=== PATIENT | female | born 1990 | race Caucasian/White ===

== ENCOUNTER → 2017-06-05 | Outpatient (CLI) | payer OTHER ==
[~2017-06-05] MED LIST: NITR-5 PO
== END | disposition home or self-care (01) ==
LOC: C.LAB1850 13:41
PROVIDERS: ATTEND Obstetrics & Gynecology
DX: Z34.90 Encounter for supervision of normal pregnancy, unspecified, unspecified trimester (principal); Z3A.00 Weeks of gestation of pregnancy not specified

== ENCOUNTER → 2017-06-11 | Outpatient (CLI) | payer OTHER ==
[2017-06-11 16:33] LABS: BASO % 0.3 %; BASO ABS # 0.02 K/uL (0-0.2); COMPLETE YES; EOS % 1.3 %; HEMATOCRIT 34.1 % (37-47); IG% 0.1 %; LYMPH % 27.7 %; LYMPH ABS # 1.93 K/uL (1.2-3.4); MEAN CORPUSCULAR HEMOGLOBIN 29.9 pg (25-34); MEAN CORPUSCULAR HGB CONC 35.2 g/dl (32-36); MEAN PLATELET VOLUME 10.1 fL (7.4-10.4); NEUT % 65.6 %; PLATELET COUNT 215 K/uL (130-400); RED BLOOD COUNT 4.01 M/uL (4.2-5.4); WHITE BLOOD COUNT 6.98 K/uL (4.8-10.8)
[2017-06-11 18:44] LABS: URINE APPEARANCE TURBID (CLEAR); URINE BILIRUBIN NEG (NEG); URINE COLOR DK YELLOW; URINE EPITHELIAL CELL AUTO >30 /lpf (0-5); URINE NITRITE NEG (NEG); URINE SPECIFIC GRAVITY 1.033 (1.000-1.030); UROBILINOGEN NEG (NEG)
[2017-06-11 18:45] LABS: MANUAL MICROSCOPIC REQUIRED? NO; REVIEW REQ? NO
[2017-06-14 03:19] LABS: CHLAMYDIA TRACH RNA*** NOT DETECTED (NOT DETECTED); GC (NEIS GONORRHOEAE)RNA** NOT DETECTED (NOT DETECTED)
== END | disposition home or self-care (01) ==
LOC: C.LAB1850 14:57
PROVIDERS: ATTEND Obstetrics & Gynecology
DX: O09.211 Supervision of pregnancy with history of pre-term labor, first trimester (principal)

== ENCOUNTER → 2017-06-11 | Outpatient (CLI) | payer OTHER | END | disposition home or self-care (01) | LOC: C.PAPS 08:58 | PROVIDERS: ATTEND Obstetrics & Gynecology | DX: Z12.4 Encounter for screening for malignant neoplasm of cervix (principal) ==

== ENCOUNTER → 2017-10-01 | Outpatient (CLI) | payer OTHER | END | disposition home or self-care (01) | LOC: C.LABSPEC 13:35 | PROVIDERS: ATTEND Obstetrics & Gynecology | DX: Z34.83 Encounter for supervision of other normal pregnancy, third trimester (principal) ==

== ENCOUNTER → 2017-10-04 | Outpatient (CLI) | payer OTHER ==
[2017-10-04 12:34] LABS: HEMATOCRIT 33.9 % (37-47); HEMOGLOBIN 11.4 g/dL (12.0-16.0)
== END | disposition home or self-care (01) ==
LOC: C.LAB1850 10:07
PROVIDERS: ATTEND Obstetrics & Gynecology
DX: Z34.83 Encounter for supervision of other normal pregnancy, third trimester (principal)

== ENCOUNTER → 2017-12-09 | Outpatient (CLI) | payer OTHER | END | disposition home or self-care (01) | LOC: C.LABSPEC 10:28 | PROVIDERS: ATTEND Obstetrics & Gynecology | DX: Z34.83 Encounter for supervision of other normal pregnancy, third trimester (principal) ==

== ENCOUNTER 2017-12-25 02:09 | Inpatient (IN) | payer OTHER ==
[~2017-12-25] VITALS: Ht 157.5 cm; Wt 72.7 kg
[2017-12-25 02:53] VITALS: Ht 157.5 cm; Wt 72.7 kg
[2017-12-25] MEDS ORDERED: EpHEDrine SULFATE INJ 50 MG/ML AMP ONE (02:54)
[2017-12-25] MEDS ORDERED: FENTANYL CITRATE INJ 50 MCG/1 ML 2 ML VIAL ONE (02:54)
[2017-12-25] MEDS ORDERED: BUPIVACAINE 0.25% 30 ML VIAL ONE (02:54)
[2017-12-25] MEDS ORDERED: FENTANYL 2MCG/ML ROPIV 1.25MG/ML 100ML BAG EPI ONE (02:55)
[2017-12-25] MEDS ORDERED: PRENTAB26 PO (03:00)
[2017-12-25] MEDS: LACTATED RINGER'S 1000ML 1,000 ML IV SCH ×2 (03:04→04:01)
[2017-12-25 03:21] LABS: HEMATOCRIT 32.5 % (37-47); HEMOGLOBIN 10.9 g/dL (12.0-16.0); MEAN CELL VOLUME 85.5 fL (80-100); MEAN CORPUSCULAR HEMOGLOBIN 28.7 pg (25-34); MEAN CORPUSCULAR HGB CONC 33.5 g/dl (32-36); MEAN PLATELET VOLUME 10.5 fL (7.4-10.4); PLATELET COUNT 197 K/uL (130-400); RED CELL DISTRIBUTION WIDTH CV 13.4 % (11.5-14.5); RED CELL DISTRIBUTION WIDTH SD 41.7 fL (36.4-46.3); WHITE BLOOD COUNT 13.37 K/uL (4.8-10.8)
[2017-12-25] MEDS ORDERED: NALOXONE HCL INJ 1 MG in SODIUM CHLORIDE 0.9% 1000ML 1,000 ML IV PRN (04:13)
[2017-12-25] MEDS ORDERED: LACTATED RINGER'S 1000ML 500 ML IV PRN (04:13)
[2017-12-25] MEDS ORDERED: NALOXONE HCL INJ 0.4 MG/1 ML VIAL/CARP IV PRN (04:15)
[2017-12-25] MEDS ORDERED: DiphenhydrAMINE HCL 50 MG/ML VIAL IV PRN (04:15)
[2017-12-25] MEDS ORDERED: PROMETHAZINE HCL INJ 6.25 MG in SODIUM CHLORIDE 0.9% 50ML 50 ML IV PRN (04:15)
[2017-12-25] MEDS ORDERED: EpHEDrine SULFATE INJ 50 MG/ML AMP IV PRN (04:15)
[2017-12-25] MEDS ORDERED: NALBUPHINE HCL INJ 10 MG/ML AMP IV PRN (04:15)
[2017-12-25] MEDS ORDERED: FENTANYL 2MCG/ML ROPIV 1.25MG/ML 100ML BAG EPI PRN (04:15)
[2017-12-25] MEDS ORDERED: ONDANSETRON INJ 2 MG/ML 2 ML VIAL IV PRN (04:15)
[2017-12-25] MEDS ORDERED: OXYTOCIN 30 UNITS/500ML NSS IV ONE (05:07)
[2017-12-25] MEDS ORDERED: SUPERCREAM 0.870 % 15GM JAR EXT PRN (06:00)
[2017-12-25] MEDS ORDERED: BENZOCAINE 20% AER SPR 82.5 GM CAN EXT PRN (06:00)
[2017-12-25] MEDS ORDERED: OXYTOCIN 30 UNITS/500ML NSS IV PRN (06:00)
[2017-12-25] MEDS ORDERED: HYDROCORTISONE ACETATE 25 MG SUPP PR PRN (06:00)
[2017-12-25] MEDS ORDERED: LANOLIN OINT EXT PRN (06:00)
[2017-12-25] MEDS ORDERED: OXYCODONE/ACETAMINOPHEN 5-325 TAB PO PRN (06:00)
[2017-12-25] MEDS ORDERED: ACETAMINOPHEN 325 MG TAB PO PRN (06:00)
--- NOTE | 2017-12-25 07:46 | DELIVERY SUMMARY ---
DATE OF OPERATION: 12/25/2017 PREDELIVERY DIAGNOSES: 1. A 27-year-old G3, P1-0-0-2 at 39 weeks and 2 days. 2. Spontaneous labor. 3. History of prior delivery. POSTDELIVERY DIAGNOSES: 1. A 27-year-old G3, P1-0-0-2 at 39 weeks and 2 days. 2. Spontaneous labor. 3. History of prior delivery. PROCEDURE: Spontaneous vaginal delivery. FINDINGS: Viable male with Apgars 8 and 9, weight pending. Please see nursery record. COMPLICATIONS: None. ESTIMATED BLOOD LOSS: 300 mL. DESCRIPTION OF DELIVERY: The patient presented in spontaneous labor and after artificial rupture of membranes, progressed to complete and began to push with epidural anesthesia. She then spontaneously vaginally delivered a viable male from the cephalic presentation. The head delivered in the right occiput anterior position followed by the anterior shoulder and then the posterior shoulder and then the body. No nuchal cord was noted. The baby was placed on the mother's abdomen. A spontaneous cry was heard. The cord was doubly clamped and cut. Cord blood was obtained. The placenta was then delivered spontaneously intact with a 3-vessel cord. The uterus and vagina were swept of all clots and debris. Pitocin was started. The uterus became firm. The cervix, vagina, and perineum were inspected and no lacerations were noted. Excellent hemostasis was observed. The sponge, needle, and instrument counts were correct at the conclusion of the delivery x2. Mother and baby recovered in stable and good condition in the room. I attest to the content of the Intraoperative Record and any orders documented therein. Any exceptions are noted below. LUPILLO
--- NOTE | 2017-12-25 08:19 | Anesthesia Procedure Note ---
Anesthesia Epidural Removal Nt Date & Time Dec 25, 2017 at 08:19 Vital Signs Pain Intensity: 0.0 Notes Mental Status: alert / awake / arousable, participated in evaluation Nausea / Vomiting: adequately controlled Pain: adequately controlled Airway Patency, RR, SpO2: stable & adequate BP & HR: stable & adequate Hydration State: stable & adequate Neuraxial Anesthesia: was administered Anesthetic Complications: no major complications apparent, pt satisfied with anesthetic care Epidural: removed without complications, with tip intact
[2017-12-25] MEDS: IBUPROFEN 600 MG TAB PO PRN ×2 (10:58→20:06)
[2017-12-25 16:15] VITALS: BP 115/66; PULSE 86; TEMP 37
[2017-12-25 20:00] VITALS: BP 105/69; PULSE 92; TEMP 36.9
[2017-12-25] MEDS: DOCUSATE SODIUM 100 MG CAP PO SCH (20:06)
[2017-12-25 23:35] VITALS: BP 105/57; PULSE 90; TEMP 36.5; O2SAT 96
[2017-12-26 03:50] VITALS: BP 111/70; PULSE 76; TEMP 36.3; O2SAT 96
--- NOTE | 2017-12-26 06:54 | Progress Note ---
Subjective Dec 26, 2017. Subjective conversation w/ patient, physical exam, chart review, lab review Ambulation: ambulating normally Voiding: no voiding problems Passing Gas: Yes Diet Tolerance: Regular Diet Lochia: Small Feeding Type: Breast Feeding Review of Systems Constitutional: No fever, No chills Respiratory: No cough, No shortness of breath Cardiac: No chest pain, No palpitations Abdomen: No pain, No nausea, No vomiting Female : No dysuria Objective Vital Signs Date Time Temp Pulse Resp B/P (MAP) Pulse Ox O2 Delivery O2 Flow Rate FiO2 12/26/17 03:50 36.3 76 14 111/70 (84) 96 Room Air 12/25/17 23:35 Room Air 12/25/17 23:35 36.5 90 16 105/57 (73) 96 Room Air 12/25/17 20:00 36.9 92 20 105/69 (81) Room Air 12/25/17 16:15 Room Air 12/25/17 16:15 37.0 86 16 115/66 (82) Room Air Physical Exam General Appearance: WELL-APPEARING, WD/WN, NO APPARENT DISTRESS Respiratory/Chest: lungs clear, no respiratory distress Cardiovascular: regular rate, rhythm, no murmur Abdomen: non tender, soft Fundus: Firm, Relation to Umbilicus (at the level of the u) Extremities: non-tender, normal inspection Laboratory Results Last 24 Hours Test 12/26/17 04:44 Assessment and Plan Post- Day#: 1 Continue Routine Care: 27 yo F, , O+/GBS-/RI, PPD1, delivered at 600 am yesterday (Dr. Ellis). Vital reviewed, WNL. Hgb 10.9 on admission, pending today. Pt is doing well clinically. 1. Recovery from vaginal delivery; ambulate, control pain, monitor lochia, support bf 2. Discussed dc planning Resident Physician Supervision Note: I interviewed and examined the patient. Discussed with Dr. Sabillon and agree with findings and plan as documented in the note. Any exceptions or clarifications are listed here: Doing well. Routine care. Documented By: Samantha Wang
[2017-12-26 07:33] LABS: HEMATOCRIT 30.8 % (37-47)
--- NOTE | 2017-12-26 07:34 | Discharge Instructions ---
Discharge Instructions Date of Service Dec 26, 2017. Admission Reason for Admission: Spontaneous Onset Of Labor Discharge Discharge Diagnosis / Problem: vaginal delivery Discharge Goals Goal(s): Routine recovery after delivery Medications Continue Dispensed Medications: supercream, dermaplast, tucks, lansinoh Activity Recommendations Activity Limitations: per Instructions/Follow-up section . Instructions / Follow-Up Instructions / Follow-Up ACTIVITY RECOMMENDATIONS: * Gradual return to full activity over the next 2-3 weeks. * No lifting - nothing heavier than baby over the next 2-3 weeks. * Do not engage in vigorous exercise, sexual activity or sports until cleared by your physician. * Do not drive or operate any motorized equipment until cleared by your physician. * You may shower/bathe daily. MEDICATIONS: For discomfort or pain, you may use Acetaminophen (Tylenol), Ibuprofen (Advil), or Naproxen (Aleve) following the package directions. For constipation you may use Colace following the package directions. BREAST CARE: If you are not breast feeding: * Wear a supportive bra 24 hours a day for one to two weeks. * Avoid stimulating your breasts and nipples as much as possible during the first few weeks after delivery. * When taking a shower, have the warm water hit your back, not breasts. * When your breasts feel full, apply ice packs. Usually three to four times a day helps ease the discomfort. * Take a mild pain medication (Tylenol / Motrin) when you are uncomfortable. If breast feeding: * Use breast milk to lubricate nipples. Lansinoh cream may be used for sore nipples. You do not need to remove cream prior to breast feeding. If using a different brand of cream, check the label for directions regarding removal of cream prior to nursing. * Wear a supportive bra. * If having problems with breasts or breast feeding, call a field sales consultant or your health care provider. EPISIOTOMY CARE: After delivery, if you have an episiotomy (stitches), the following steps will ease discomfort and aid healing. * For the first 24 hours after delivery, place ice packs next to your episiotomy to help reduce swelling. * After the first 24 hour-period, sitz baths, either portable or in the tub, are suggested. A shower with a shower arm sprayed over the episiotomy may be comforting. * Shanelle care should be done after each voiding and bowel movement. Squirt warm water from a plastic bottle over the perineum (region of the body between the anus and urinary opening) and pat dry. * Use Dermoplast to ease discomfort. Shake container. [place] directly over the episiotomy. Place a Tucks on a clean sanitary pad next to your episiotomy. SPECIAL CARE INSTRUCTIONS: When you are discharged from the hospital, it is important for you to follow the instructions listed below: * During the first week at home, you should be able to care for yourself and your baby. In addition, the usual light household activities are encouraged. * Limit your activities to the way you feel. Do not try to clean the house or move furniture. Be sensible. * If you actively engage in sports and have done so up until the time of your delivery, you may resume these activities as soon as you feel able. This may take up to one month or even longer. Use good judgment. * Continue to take your vitamins for at least six weeks after the of your baby. * Your diet need not be limited unless you were on a special diet before your delivery. Breast-feeding mothers need around 2500 calories per day and at least 64-80 ounces of fluid per day (8 to 10 glasses). * You should eat foods from the four major food groups. Crash diets or fad diets are to be avoided. Eating lean meats, fresh fruits and vegetables, low-fat dairy products, high fiber foods and a regular exercise program, will help you get back to your pre- weight without putting your health at risk. * Constipation is sometimes a problem after delivery. Take a mild laxative as needed. If breast feeding, Milk of Magnesia is acceptable to use. You may use a suppository or Fleets enema if no episiotomy. * A daily shower or tub bath is suggested. Be sure to thoroughly and gently dry the perineum. * A bloody vaginal discharge will usually continue until around four weeks post . A small amount of bleeding may continue for as long as six weeks. Vaginal discharge changes from the bright red bleeding after delivery to pink then brownish and finally yellowish-pink before becoming white and disappearing. * Bleeding may increase with activity. Your first period may come in 4-8 weeks. If you are breast feeding, your period may be delayed even longer. * [place] (sex) can begin whenever both you and your partner feel comfortable and do not have any form of genital infection. It is recommended that you wait at least six weeks for internal and external healing to occur. If you have questions, please talk to your health care practitioner. A condom should be used to prevent infection and . * Foreplay, gentle intercourse and lubrication is very important the first several times to prevent pain. A water-based lubricant such as K-Y jelly or Astroglide may be used. * If you have RH negative blood and your baby is RH positive, you will receive RHOGAM by injection prior to discharge. The nurse will give you a card to keep with you that has the date and place that you received RHOGAM after delivery. * During your care, you had a Rubella screen done to check for the presence of rubella antibodies in your blood. If your test was negative, you will receive a Rubella vaccine prior to discharge. This vaccine may cause a fever, soreness at the injection site and flu-like symptoms. If these symptoms persist, notify your health care practitioner. is not advised for one month after a Rubella vaccine. * Verbalizes understanding of car seat law as reviewed with patient nursing. * Car Seat hand-out given and reviewed with patient by nursing. * Shaken baby information reviewed with patient by nursing. Call you doctor if: * Heavy bleeding (saturating several pads an hour) or passing clots the size of your fist. * A fever >101 degrees F (38.3 degrees C) on two occasions four hours apart and /or chills. * Unusual pain in the pelvic or vaginal areas. * "Baby Blues" lasting longer than two weeks. If you have any questions or concerns, call your health care practitioner at . FOLLOW UP VISIT: * Please call the office at to schedule a 6 week examination. It is important you keep this appointment. It is important for you to make arrangements for either yearly or twice yearly check-ups thereafter. Current Hospital Diet Patient's current hospital diet: Regular OB Diet Discharge Diet Recommended Diet: Regular Diet, Regular OB Diet Pending Studies Studies pending at discharge: no Medical Emergencies . Who to Call and When: Medical Emergencies: If at any time you feel your situation is an emergency, please call 911 immediately. . Non-Emergent Contact Non-Emergency issues call your: Primary Care Provider, Dividing Machine Operator . . "Provider Documentation" section prepared by Rex Sabillon. .
[2017-12-26 08:00] VITALS: BP 113/70; PULSE 76; TEMP 36.6
[2017-12-26] MEDS: IBUPROFEN 600 MG TAB PO PRN (08:08)
[2017-12-26] MEDS: DOCUSATE SODIUM 100 MG CAP PO SCH (08:09)
[2017-12-26 15:25] VITALS: BP 116/74; PULSE 85; TEMP 36.9
[2017-12-26 16:39] VITALS: BP_DIAS 74; PULSE 85; TEMP 36.9
[2017-12-26] MEDS ORDERED: BISACODYL 5 MG TABEC PO SCH (20:00)
== END 2017-12-26 16:40 | disposition home or self-care (01) | DRG 775 ==
LOC: C.OPB 02:09 → C.LD 02:09 → C.OPB 02:50 → C.OBG 16:35
PROVIDERS: ADMIT Obstetrics & Gynecology; ATTEND Obstetrics & Gynecology
PROC: 10E0XZZ Delivery of Products of Conception, External Approach (ICD-10-PCS; principal; 2017-12-25)
DX: O80 Encounter for full-term uncomplicated delivery (principal); Z37.0 Single live birth; Z3A.39 39 weeks gestation of pregnancy; Z88.7 Allergy status to serum and vaccine

== ENCOUNTER 2019-09-29 06:21 | Inpatient (IN) ==
[2019-09-29] MEDS ORDERED: LACTATED RINGER'S 1,000 ML IV PRN (06:31)
[2019-09-29] MEDS ORDERED: OXYTOCIN 30 UNITS/500 ML BAG IV PRN ×2 (06:31→11:54)
[2019-09-29] MEDS ORDERED: ePHEDrine sulfate 50 MG/ML AMP ONE (06:46)
[2019-09-29] MEDS ORDERED: BUPIVACAINE 0.25% 30 ML VIAL ONE (06:46)
[2019-09-29] MEDS ORDERED: fentaNYL citrate 100 MCG/2 ML VIAL ONE (06:46)
[2019-09-29] MEDS ORDERED: fentaNYL 2MCG/ML ROPIV 1.25MG/ML 100 ML BAG EPI ONE (06:47)
[2019-09-29 06:50] LABS: Hematocrit (blood only) 35.8 % (37-47); Hemoglobin 12.2 g/dL (12.0-16.0); Mean Corpuscular Hemoglobin 30.2 pg (25-34); Mean Corpuscular Volume 88.6 fL (80-100); Mean Platelet Volume 10.7 fL (7.4-10.4); Platelet Count 226 K/uL (130-400); RDW Coefficient of Variation 12.8 % (11.5-14.5); RDW Standard Deviation 41.7 fL (36.4-46.3); Red Blood Count 4.04 M/uL (4.2-5.4); White Blood Count 13.85 K/uL (4.8-10.8)
[2019-09-29 06:55] LABS: Mean Corpuscular Hgb Conc 34.1 g/dL (32-36)
--- NOTE | 2019-09-29 07:15 | Anesthesiology Consultation ---
Date of Service September 29, 2019 Assessment & Plan Chart Review Chart Review: Acceptable Risk for Surgery, Patient NOT seen in Pre Admission Testing and Acceptable Risk for Labor Epidural Consults Requested none ASA ASA2 Proposed Anesthesia Anesthesia Type: Labor Epidural Risk / Benefits Reviewed With: PT / POA / Parent / Guardian, Accepts Plan and I nformed Consent Obtained History Height/Weight Height: 5 ft 2 in Weight: 69.853 kg Allergies Allergy/AdvReac Type Severity Reaction Status Date / Time thimerosal Allergy Mild RASH Unverified 09/25/18 15:16 Flu Virus Vaccine Allergy Mild RASH Uncoded 09/25/18 15:16 Medications Home Medications Medication Instructions Recorded Confirmed Last Taken PNV cmb#95-ferrous fumarate-FA 1 tab PO DAILY 09/28/19 09/29/19 09/28/19 [] aspirin [Aspirin Low Dose] 81 mg PO DAILY 09/29/19 09/29/19 09/28/19 Active Medications Generic Name Dose Route Start Last Admin Trade Name Freq PRN Reason Stop Dose Admin Lactated Ringer's 1,000 mls @ 125 mls/hr 09/29/19 06:31 09/29/19 06:42 Lr IV 10/01/19 06:30 999 mls/hr .Q8H PRN Administration L&D Protocol Protocol NPO Date Last Intake of Fluids: 09/29/19 Time Last Intake of Fluids: 04:00 Date Last Intake of Solids: 09/28/19 Time Last Intake of Solids: 19:00 Past Medical History Medical History No pertinent past medical history Exercise / Class Metabolic Activity II 4-5 Yardwork/Stairs/Walk up hill Past Surgical History Surgical History History of appendectomy History of tonsillectomy Past Anesthesia History No Hx of Anesthesia Complications and No Family Hx of Anesthesia Complications History of PONV No Hx of PONV and No Hx of Motion Sickness Social History Smoking Status: Never smoker Hx Alcohol Use: No Hx Substance Use: No Physical Exam Vital Signs Last Vital Signs Temp 36.4 C L 09/29/19 06:32 Pulse 94 H 09/29/19 06:31 Resp 18 09/29/19 06:32 BP 130/85 09/29/19 06:31 Constitutional + obese ENMT Mouth: no dentition abnormality Thyromental Distance: < 3.5 Finger Breadths Mallampati Class: II Neck normal visual inspection and trachea midline; neck extension not limited Respiratory normal respiratory effort Auscultation: lungs clear to auscultation bilaterally Cardiovascular Rate/Rhythm: regular rate and regular rhythm Heart Sounds: no murmur Musculoskeletal Spine: lumbar spine normal to inspection; normal cervical ROM Neurologic moves all extremities Motor/Sensory: no sensory deficit Psychiatric Orientation: alert and oriented x 3 Testing Laboratory Results 09/29/19 06:41
--- NOTE | 2019-09-29 07:23 | History & Physical Report ---
Date of Service September 29, 2019 Assessment & Plan (1) Uterine contractions: 28 yo at 38.6 wks presented in active labor VSS Afebrile FHR reassuring GBS negative Epidural for pain Anticipate History of Present Illness Primary Care Provider: NO PCP Patient is a 29 yo at 38.6 wks came back with more regular ctxs No LOF/VB +FM She is getting epidural now GBS Negative Allergies Allergy/AdvReac Type Severity Reaction Status Date / Time thimerosal Allergy Mild RASH Unverified 09/25/18 15:16 Flu Virus Vaccine Allergy Mild RASH Uncoded 09/25/18 15:16 Home Medications Home Medications Medication Instructions Recorded Confirmed Type PNV cmb#95-ferrous fumarate-FA 1 tab PO DAILY 09/28/19 09/29/19 History [] aspirin [Aspirin Low Dose] 81 mg PO DAILY 09/29/19 09/29/19 History Patient History Medical History No pertinent past medical history Surgical History History of appendectomy History of tonsillectomy Social History Preferred Language: [place]an Communication Ability: Effective Beliefs That Will Affect Care: None marital status: Current Living Situation: Family Other Information That Helps Us Care for You: No Feels Safe at Home: Yes Safety Concerns: Feels Safe At This Time Smoking Status: Never smoker Hx Alcohol Use: No Hx Substance Use: No OB History 2 FT 1 PTL&D at 34.5 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
[2019-09-29] MEDS ORDERED: DiphenhydrAMINE HCL 50 MG/ML VIAL IV PRN (07:34)
[2019-09-29] MEDS ORDERED: PROMETHAZINE HCL 25 MG in SODIUM CHLORIDE 0.9% 50 ML IV PRN (07:34)
[2019-09-29] MEDS ORDERED: NALOXONE HCL 0.4 MG/1 ML VIAL/CARP IV PRN (07:34)
[2019-09-29] MEDS ORDERED: ONDANSETRON INJ 2 MG/ML 2 ML VIAL IV PRN (07:34)
[2019-09-29] MEDS ORDERED: NALOXONE HCL 1 MG in SODIUM CHLORIDE 0.9% 1000ML 1,000 ML IV PRN (07:34)
[2019-09-29] MEDS ORDERED: NALBUPHINE HCL INJ 10 MG/ML AMP IV PRN (07:34)
[2019-09-29] MEDS ORDERED: ePHEDrine sulfate 50 MG/ML AMP IV PRN (07:34)
--- NOTE | 2019-09-29 08:19 | Obstetrical Progress Note ---
Date of Service September 29, 2019 Physical Exam Genitourinary: Manual OB Exam: + cervical dilation 9 cm, + cervical effacement 100%, + station -2 and + amniotic fluid clear OB Exam Monitor Tracing: + external FHT monitor used, + category I and + normal FHT variability AROM with amni-hook Results & Data Vital Signs (Past 12 Hours) Vital Signs Temp Pulse Resp BP Pulse Ox 09/29/19 08:10 92 H 118/74 09/29/19 08:08 88 100 09/29/19 08:03 94 H 100 09/29/19 07:58 96 H 100 09/29/19 07:55 80 120/67 09/29/19 07:53 36.6 C 82 20 100 09/29/19 07:48 83 100 09/29/19 07:43 83 100 09/29/19 07:39 87 115/75 09/29/19 07:38 82 100 09/29/19 07:37 75 121/75 09/29/19 07:35 73 125/76 09/29/19 07:33 92 H 116/57 L 100 09/29/19 07:31 66 125/61 09/29/19 07:29 70 124/71 09/29/19 07:28 74 100 09/29/19 07:27 71 137/65 09/29/19 07:24 93 H 118/72 09/29/19 07:23 81 100 09/29/19 07:18 83 100 09/29/19 06:32 36.4 C L 18 09/29/19 06:31 94 H 130/85
--- NOTE | 2019-09-29 09:16 | Delivery Summary ---
Vaginal Delivery Summary Date of Service September 29, 2019 Vaginal Delivery Summary Delivery Note live male over intact perineum MARCELINO with delayed cord clamping and Apgars 8/9 weight pending. Cord blood obtained and placenta delivered spontaneously and intact. No tears. EBL 100 ml. Final sponge and instrument count are correct. Mom and baby stable.
[2019-09-29] MEDS ORDERED: HYDROCORTISONE ACETATE 25 MG SUPP PR PRN (11:54)
[2019-09-29] MEDS ORDERED: ACETAMINOPHEN 325 MG TAB PO PRN (11:54)
[2019-09-29] MEDS ORDERED: BENZOCAINE 20% AER SPR 82.5 GM CAN EXT PRN (11:54)
[2019-09-29] MEDS ORDERED: DIPHTHERIA/TETANUS/PERTUSSIS 0.5 ML SYR/VIAL IM ONE (11:54)
[2019-09-29] MEDS ORDERED: SUPERCREAM 0.870% 15 GM JAR EXT PRN (11:54)
[2019-09-29] MEDS ORDERED: bisacodyL 10 MG SUPP PR PRN (11:54)
[2019-09-29] MEDS: IBUPROFEN 600 MG TAB PO PRN ×2 (14:24→19:53)
[2019-09-29] MEDS: DOCUSATE SODIUM 100 MG CAP PO SCH (19:53)
[2019-09-30 06:25] LABS: Hematocrit (blood only) 32.7 % (37-47); Hemoglobin 10.9 g/dL (12.0-16.0); Mean Corpuscular Hemoglobin 30.2 pg (25-34); Mean Corpuscular Hgb Conc 33.3 g/dL (32-36); Mean Corpuscular Volume 90.6 fL (80-100); Mean Platelet Volume 10.9 fL (7.4-10.4); Platelet Count 209 K/uL (130-400); RDW Coefficient of Variation 13.1 % (11.5-14.5); RDW Standard Deviation 43.1 fL (36.4-46.3); Red Blood Count 3.61 M/uL (4.2-5.4)
[2019-09-30] MEDS ORDERED: PRENATAL VITAMIN 1 TAB PO SCH (08:00)
--- NOTE | 2019-09-30 08:18 | Obstetrical Progress Note ---
Date of Service September 30, 2019 Physical Exam Physical Exam: abdomen soft and non tender no calf tenderness ambulating well vaginal bleeding scant hgb 10.9 Results & Data Vital Signs (Past 12 Hours) Vital Signs Temp Pulse Pulse Resp BP Pulse Ox 09/30/19 07:30 36.5 C 82 18 110/71 98 09/30/19 04:15 36.4 C L 73 16 105/68 98 09/30/19 00:25 36.5 C 67 20 111/65 98
[2019-09-30] MEDS ORDERED: NON-FORMULARY MEDICATION (Pnv Cmb#95-Ferrous Fumarate-Fa [Prenatal] 1 TAB) PO SCH (09:00)
[2019-09-30] MEDS ORDERED: ASPIRIN 81 MG ECTAB PO SCH (09:00)
[2019-09-30] MEDS: DOCUSATE SODIUM 100 MG CAP PO SCH (09:39)
[2019-09-30] MEDS: IBUPROFEN 600 MG TAB PO PRN (09:41)
[2019-09-30] MEDS ORDERED: bisacodyL 5 MG TABEC PO SCH (20:00)
--- NOTE | 2019-10-02 09:31 | Anesthesiology Progress Note ---
Date of Service October 02, 2019 Anesthesia Post Procedure Pain Intensity Abdomen: Pain Intensity: 0 Transfer of Care Handoff Completed per policy Notes Mental Status: alert / awake / arousable Patient Amnestic to Procedure: Yes Nausea / Vomiting: adequately controlled Pain: adequately controlled Airway Patency, RR, SpO2: stable & adequate BP & HR: stable & adequate Hydration State: stable & adequate Neuraxial Anesthesia: was administered and sensory block resolved Anesthetic Complications: no major complications apparent and Pt Satisfied with anesthetic care
== END 2019-09-30 17:50 | disposition home or self-care (01) | DRG 807 ==
LOC: OPB 06:21 → 4S1 06:24 → 4S2 11:54

== ENCOUNTER 2021-09-02 18:47 | Inpatient (IN) ==
[2021-09-02] MEDS ORDERED: OXYTOCIN 30 UNITS/500 ML BAG IV PRN ×3 (19:03→22:50)
[2021-09-02] MEDS: LACTATED RINGER'S 1,000 ML IV PRN ×2 (19:25→20:31)
[2021-09-02 19:28] LABS: Hematocrit (blood only) 32.2 % (37-47); Hemoglobin 10.7 g/dL (12.0-16.0); Mean Corpuscular Hemoglobin 29.6 pg (25-34); Mean Corpuscular Hgb Conc 33.2 g/dL (32-36); Mean Platelet Volume 10.2 fL (7.4-10.4); Platelet Count 257 K/uL (130-400); RDW Coefficient of Variation 12.9 % (11.5-14.5); RDW Standard Deviation 42.1 fL (36.4-46.3); Red Blood Count 3.62 M/uL (4.2-5.4); White Blood Count 7.93 K/uL (4.8-10.8)
--- NOTE | 2021-09-02 19:38 | History & Physical Report ---
Date of Service September 02, 2021 Assessment & Plan (1) with 39 completed weeks gestation: (2) COVID-19 affecting , antepartum: (3) Normal labor: Plan: Patient has tested covid positive and will be moved to the covid room. Has had this cough for 4ish weeks so may be positive from previous infection or current infection, unable to determine. She has no s/s of severe disease at this time. Plan to admit for labor given she is 4-5 and this is her 5th baby. Plan epidural, then arom. Anticipate . Fetus is category one, but does have periods of minimal variability, but only have about 15 min of strip. will monitor closely. History of Present Illness Chief Complaint: contractions Primary Care Provider: NO PCP Patient is a 30yowf who presents at 39 0/7 weeks who complains of contractions since this am. Notes she has felt wet and has changed her pad several times. Notes some blood tinge. +fm. Presented to labor and delivery unannounced because she said no one answered at the service. This has been uncomplicated. she failed 28 week gtt and never did 2 hr. She had EIF on anatomy us, declined further testing/screening. Patient notes she has had an off admission specialist for about 4 weeks. She also notes that there is covid going around at work. She notes no fever , sore throat, sob. Labs: Blood Type O Positive 03/13/21 Antibody Screen NEGATIVE 03/13/21 Hemoglobin 11.7 g/dL (12.0-16.0) LB 06/28/21 Hematocrit 32.6 % (37-47) L 06/28/21 Mean Corpuscular Volume 89.8 fL (80-100) 03/13/21 Platelet Count 237 K/uL (130-400) 03/13/21 Rubella IgG Antibody Immune (Immune) 03/13/21 Rapid Plasma Reagin Nonreactive (Nonreactive) 03/13/21 Hepatitis B Surface Antigen Neg (Neg) 03/13/21 HIV (1&2) Ab and P24 Ag, 4th Gener Neg (Neg) 03/13/21 Glucose 1 Hour 50 gm Load 161 mg/dl (70-130) H 06/28/21 OB Optional Labs: Chlamydia trachomatis RNA NOT DETECTED (NOT DETECTED) 03/13/21 Neisseria gonorrhoeae RNA NOT DETECTED (NOT DETECTED) 03/13/21 declined cf/sma/genetics/afp. gbs neg Allergies Allergy/AdvReac Type Severity Reaction Status Date / Time thimerosal Allergy Mild RASH Verified 08/31/21 14:03 Flu Virus Vaccine Allergy Mild RASH Uncoded 09/02/21 19:08 Home Medications Medication Instructions Recorded Confirmed Type vit no.95-ferrous 1 tab PO DAILY 09/28/19 09/02/21 History fumarate 28 mg-folic acid 800 mcg tablet () ferrous sulfate 1 tab PO DAILY 07/06/21 09/02/21 History Patient History Medical History No pertinent past medical history Spontaneous vaginal delivery 02/2016 [facility] 12/2016 [place] 35wks 12[place] [facility] [place] [facility] Surgical History History of appendectomy History of tonsillectomy Family History Mother Thyroid disease Social History Smoking Status: Never smoker Hx Alcohol Use: No Hx Substance Use: No Preferred Language: Burundian Communication Ability: Effective Valve Assembler Required: No Beliefs That Will Affect Care: None marital status: marital status details: Jeronimo (34) [phone] Current Living Situation: Spouse Current Living Situation Comment: house with and kids current occupational status: employed 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 DateGA wksLbr LgthBirth wtSexType delAnesPlaceDel ProvPreterm?Comment 02/21/16 38 7lb 13oz F [place]ural [place] 01/19/17 35 5lb 13oz M Epidural [place] 12/25/17 39 7lb 11oz M Epidural [facility] Dr. Graf 09/29/19 38 7lb 12oz M Spinal [facility] rDr. 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 History noncontributory Physical Exam Constitutional: WD/WN, vitals as above Gastrointestinal (Abdomen): soft, gravid, nt Psychiatric: A+Ox3, euthymic affect Genitourinary: cx--4-5 pre nursing, cephalic, feels intact toco--q5-7 min efm--150s with min to mod variability, no accels, no decels Results & Data ([facility]) Vital Signs (Past 12 Hours) Vital Signs Temp Pulse Resp BP 09/02/21 19:10 36.7 C 18 09/02/21 18:49 36.7 C 86 20 136/85 Coding Level of Care Code None Diagnoses with 39 completed weeks gestation Z3A.39 COVID-19 affecting , antepartum O98.519; U07.1 Normal labor O80; Z37.9
[2021-09-02] MEDS ORDERED: ePHEDrine sulfate 50 MG/ML AMP ONE (19:42)
[2021-09-02] MEDS ORDERED: fentaNYL 2MCG/ML ROPIVACAINE 1.25MG/ML 100 ML BAG EPI ONE (19:43)
[2021-09-02] MEDS ORDERED: fentaNYL citrate 100 MCG/2 ML VIAL ONE (19:43)
[2021-09-02] MEDS ORDERED: BUPIVACAINE 0.25% 30 ML VIAL ONE (19:43)
[2021-09-02] MEDS ORDERED: SODIUM CHLORIDE 0.9% INJ 10 ML VIAL ONE (19:43)
--- NOTE | 2021-09-02 20:26 | Anesthesiology Consultation ---
Date of Service September 02, 2021 Assessment & Plan (1) Encounter for pre-operative examination: Chart Review Chart Review: Patient NOT seen in Pre Admission Testing and Acceptable Risk for Labor Epidural Consults Requested none History Height/Weight Height: 5 ft 2.5 in Weight: 76.204 kg Allergies Allergy/AdvReac Type Severity Reaction Status Date / Time thimerosal Allergy Mild RASH Verified 08/31/21 14:03 Flu Virus Vaccine Allergy Mild RASH Uncoded 09/02/21 19:08 Medications Home Medications Medication Instructions Recorded Confirmed Last Taken vit no.95-ferrous 1 tab PO DAILY 09/28/19 09/02/21 09/01/21 fumarate 28 mg-folic acid 800 mcg tablet () ferrous sulfate 1 tab PO DAILY 07/06/21 09/02/21 09/01/21 Active Medications Generic Name Dose Route Start Last Admin Trade Name Freq PRN Reason Stop Dose Admin Lactated Ringer's 1,000 mls @ 125 mls/hr 09/02/21 19:03 09/02/21 19:25 Lr IV 09/04/21 19:02 999 mls/hr .Q8H PRN Administration L&D Protocol Protocol Past Medical History Medical History No pertinent past medical history Spontaneous vaginal delivery 02/2016 [facility] 12/2016 [facility] [place] 35wks 12/2017 [facility] 09/2019 [facility] [place] Past Family History Family History Mother Thyroid disease Past Surgical History Surgical History History of appendectomy History of tonsillectomy Social History Smoking Status: Never smoker Hx Alcohol Use: No Hx Substance Use: No Physical Exam Vital Signs Last Vital Signs Temp 36.7 C 09/02/21 20:07 Pulse 97 H 09/02/21 20:07 Resp 18 09/02/21 20:07 BP 120/73 09/02/21 20:07 Testing Laboratory Results 09/02/21 19:20
[2021-09-02] MEDS ORDERED: NALOXONE HCL 0.4 MG/1 ML VIAL/CARP IV PRN (21:30)
[2021-09-02] MEDS ORDERED: ONDANSETRON INJ 2 MG/ML 2 ML VIAL IV PRN (21:30)
[2021-09-02] MEDS ORDERED: NALBUPHINE HCL INJ 10 MG/ML AMP IV PRN (21:30)
[2021-09-02] MEDS ORDERED: NALOXONE HCL 1 MG in SODIUM CHLORIDE 0.9% 1000ML 1,000 ML IV PRN (21:30)
[2021-09-02] MEDS ORDERED: diphenhydrAMINE 50 MG/ML VIAL IV PRN (21:30)
[2021-09-02] MEDS ORDERED: fentaNYL 2MCG/ML ROPIVACAINE 1.25MG/ML 100 ML BAG EPI PRN (21:30)
[2021-09-02] MEDS ORDERED: ePHEDrine sulfate 50 MG/ML AMP IV PRN (21:30)
--- NOTE | 2021-09-02 21:45 | Labor Progress Brief Note ---
Date of Service September 02, 2021 Subjective comfortable with epidural Assessment & Plan (1) Normal labor: (2) COVID-19 affecting , antepartum: Plan: arom done. Will start pit additionally to get contractions closer together. Fetus category one. anticipate . Admission and Anticipated Discharge Date Admission Date: September 02, 2021 Physical Exam Physical Exam: cx--5.5/75/-2 rom--clear toco--q5-7min efm--130s with mod variability, accels to 150s, no decels Results & Data ([facility]) Vital Signs (Past 12 Hours) Vital Signs Temp Pulse Resp BP 09/02/21 20:07 36.7 C 97 H 18 120/73 09/02/21 19:30 18 09/02/21 19:10 36.7 C 18 09/02/21 18:49 36.7 C 86 20 136/85 Coding Level of Care Code None Diagnoses Normal labor O80; Z37.9 COVID-19 affecting , antepartum O98.519; U07.1
[2021-09-02] MEDS ORDERED: bisacodyL 10 MG SUPP PR PRN (22:50)
[2021-09-02] MEDS ORDERED: oxyCODONE/ACETAMINOPHEN 5mg/325mg TAB PO PRN (22:50)
[2021-09-02] MEDS ORDERED: SUPERCREAM 0.870% 15 GM JAR EXT PRN (22:50)
[2021-09-02] MEDS ORDERED: DIPHTHERIA/TETANUS/PERTUSSIS 0.5 ML SYR/VIAL IM ONE (22:50)
[2021-09-02] MEDS ORDERED: BENZOCAINE 20% AER SPR 82.5 GM CAN EXT PRN (22:50)
[2021-09-02] MEDS ORDERED: HYDROCORTISONE ACETATE 25 MG SUPP PR PRN (22:50)
[2021-09-02] MEDS ORDERED: ACETAMINOPHEN 325 MG TAB PO PRN (22:50)
--- NOTE | 2021-09-02 22:50 | Delivery Summary ---
Vaginal Delivery Summary Date of Service September 02, 2021 Vaginal Delivery Summary Pre-operative Diagnosis: at 39 weeks early labor grand multip covid + Post-operative Diagnosis: same Procedure: epidural arom pitocin EBL: 300cc Anesthesia: epidural Procedure: The patient presented to labor and delivery in early active labor. Underwent epidural, arom and pitocin augmentation. The patient pushed for one contraction to deliver a viable femle in charli position. The nose and mouth were bulb suctioned on the perineum. There was a tight nuchal cord that was clamped and cut on the perineum and the rest of the was then delivere d without difficulty. The baby was vigorous. The nose and mouth were again bulb suctioned and the infant was placed in the maternal abdomen for drying and attention. Cord blood obtained. Placenta delivered spontaneous, intact with a three vessel cord. Cervix/sulci/rectum/perineum were intact. Hemostasis obtained with dilute pitocin and fundal massage. Apgars were 8/9. Mother and baby doing well at the end of the delivery. [facility] Vaginal Delivery Charge Delivery Type Details: [facility]
--- NOTE | 2021-09-02 23:15 | Anesthesia Procedure Note ---
Date of Service September 02, 2021 Anesthesia Post Epidural Note Vital Signs Vital Signs: Temp Pulse Resp BP 36.7 C 97 H 18 120/73 09/02/21 21:37 09/02/21 20:07 09/02/21 21:30 09/02/21 20:07 Notes Mental Status: alert / awake / arousable and participated in evaluation Nausea / Vomiting: adequately controlled Pain: adequately controlled Airway Patency, RR, SpO2: stable & adequate BP & HR: stable & adequate Hydration State: stable & adequate Neuraxial Anesthesia: was administered and sensory block is resolving Anesthetic Complications: no major complications apparent and Pt Satisfied with anesthetic care Epidural: Removed without complications and With tip intact Notes: Epidural site clean, dry and intact. No signs of edema, erythema or bruising at insertion site. Pt instructed to request anesthesia if she has residual lower extremity numbness or if she develops lower extremity pain or weakness, back pain or headache.
[2021-09-03] MEDS: IBUPROFEN 600 MG TAB PO PRN ×5 (00:10→19:37)
--- NOTE | 2021-09-03 07:30 | Obstetrical Progress Note ---
Date of Service September 03, 2021 Assessment & Plan (1) Vaginal delivery: Doing well. Would like d/c when able and baby cleared. Will get paperwork in order. Instructions reviewed. discussed 10 day isolation with positive covid test. Call with any concerns. Day #:: 1 Subjective Ambulation: ambulating normally Voiding: no voiding problems Passing Gas:: Yes Diet Tolerance:: regular diet Lochia:: Small Feeding Type:: breast feeding no sx of covid noted Physical Exam Constitutional WD/WN, vitals as above Cardiovascular Extremities: no calf tenderness and no edema Gastrointestinal (Abdomen) soft, gravid, nt ff/nt at u Psychiatric A+Ox3, euthymic affect Results & Data ([facility]) Vital Signs (Past 12 Hours) Vital Signs Temp Pulse Pulse Resp BP BP 09/03/21 04:40 36.7 C 87 18 120/80 09/03/21 01:30 36.8 C 65 18 145/88 H 09/03/21 00:45 18 128/93 09/03/21 00:15 18 139/87 09/02/21 23:45 18 131/73 09/02/21 23:30 18 144/74 H 09/02/21 23:20 36.4 C L 09/02/21 23:15 18 139/77 09/02/21 23:00 18 128/78 09/02/21 22:45 18 128/80 09/02/21 21:37 36.7 C 09/02/21 21:30 18 09/02/21 20:07 36.7 C 97 H 18 120/73 09/02/21 19:30 18
[2021-09-03] MEDS: DOCUSATE SODIUM 100 MG CAP PO SCH ×2 (07:40→19:37)
[2021-09-03] MEDS: PRENATAL VITAMIN 1 TAB PO SCH ×2 (07:41→15:20)
[2021-09-03 08:00] LABS: Hematocrit (blood only) 32.5 % (37-47); Hemoglobin 10.6 g/dL (12.0-16.0)
[2021-09-03] MEDS ORDERED: bisacodyL 5 MG TABEC PO SCH (20:00)
== END 2021-09-03 23:20 | disposition home or self-care (01) | DRG 805 ==
LOC: OPB 18:47 → 4S1 18:49 → 4W 19:40 → 3N 09-03 01:29